=== PATIENT | male | born 1965 | race African-American/Black ===

== ENCOUNTER 2023-02-07 12:14 | Emergency (ER) | payer MEDICAID, OTHER ==
[~2023-02-07] VITALS: Ht 177.8 cm; Wt 111.5 kg
[2023-02-07 12:56] VITALS: BP 154/91; PULSE 66; RESP 18; O2SAT 97
== END 2023-02-07 18:01 | disposition home or self-care (01) ==
LOC: ER 12:14
DX: S62.307A Unspecified fracture of fifth metacarpal bone, left hand, initial encounter for closed fracture (principal); F12.10 Cannabis abuse, uncomplicated; W18.09XA Striking against other object with subsequent fall, initial encounter; Y93.89 Activity, other specified; Y92.89 Other specified places as the place of occurrence of the external cause; Y99.8 Other external cause status
CPT/HCPCS: 29125; 73120